=== PATIENT | male | born 1980 | race American Indian/Alaskan Native ===

== ENCOUNTER 2017-08-16 03:46 | Emergency (ER) | payer SELFPAY ==
[2017-08-16 04:04] VITALS: TEMP 97.6
--- NOTE | 2017-08-16 04:33 | ED PDOC ---
HPI: CCC, URI, Sore Throat Time Seen by Provider: 08/16/17 04:10 Chief Complaint (Nursing): ENT Problem Chief Complaint (Provider): cold-symptoms History Per: Patient History/Exam Limitations: no limitations Onset/Duration Of Symptoms: Days (1) Current Symptoms Are (Timing): Still Present Associated Symptoms: Sore Throat, Nasal Congestion Additional Complaint(s): 37 y/o male presents with cold-symptoms x 1 day. Patient reports headache, runny nose alternating with congestion, sore throat. Took dayquil without improvement. Patient also reports hiccups that he can not seem to get rid of. Denies fever, dizziness, nausea/vomiting, cough, chest pain, shortness of breath , palpitations. Past Medical History Reviewed: Historical Data, Nursing Documentation, Vital Signs Vital Signs: Last Vital Signs Temp 97.6 F 08/16/17 04:02 Pulse 76 08/16/17 04:02 Resp 16 08/16/17 04:02 BP 128/80 08/16/17 04:02 Pulse Ox 98 08/16/17 04:34 - Medical History PMH: Asthma - Surgical History Surgical History: No Surg Hx - Family History Family History: States: No Known Family Hx - Home Medications Home Medications: Ambulatory Orders Medication Instructions Recorded Metoclopramide HCl [Reglan] 10 mg PO Q8 PRN #30 tablet 12/27/15 Naproxen [Naprosyn] 500 mg PO BID PRN #30 tab 12/27/15 Fluticasone Nasal [Flonase] 1 actuation NS BID #1 bottle 08/16/17 Ibuprofen [Motrin Tab] 1 tab PO Q6 PRN #20 tab 08/16/17 - Allergies Allergies/Adverse Reactions: Allergies Allergy/AdvReac Type Severity Reaction Status Date / Time FISH AdvReac RASH Verified 08/16/17 04:02 Review of Systems ROS Statement: Except As Marked, All Systems Reviewed And Found Negative ENT: Positive for: Nose Discharge, Nose Congestion, Throat Pain Physical Exam - Reviewed Nursing Documentation Reviewed: Yes Vital Signs Reviewed: Yes - Physical Exam Appears: Positive for: Well, Non-toxic, Uncomfortable (actively hiccuping) Head Exam: Positive for: ATRAUMATIC, NORMAL INSPECTION, NORMOCEPHALIC Skin: Positive for: Normal Color Eye Exam: Positive for: Normal appearance ENT: Positive for: Normal ENT Inspection Cardiovascular/Chest: Positive for: Regular Rate, Rhythm Respiratory: Positive for: Normal Breath Sounds Gastrointestinal/Abdominal: Positive for: Normal Exam Back: Positive for: Normal Inspection Extremity: Positive for: Normal ROM Neurologic/Psych: Positive for: Alert, Oriented - ECG O2 Sat by Pulse Oximetry: 98 - Progress ED Course And Treament: rapid strep Thorazine IM On re-eval, patient resting comfortably; states hiccups resolved. Patient educated on findings, discharged with rx Flonase, Ibuprofen. Advised fluids, rest. Follow up PMD 2-3 days. Return precautions given Disposition - Clinical Impression Clinical Impression: Upper respiratory infection, Hiccups - Patient ED Disposition Is Patient to be Admitted: No Counseled Patient/Family Regarding: Studies Performed, Diagnosis, Need For Followup, Rx Given - Disposition Referrals: [facility] [Outside] Disposition: Routine/Home Disposition Time: 05:37 Condition: IMPROVED Prescriptions: Fluticasone Nasal [Flonase] 1 actuation NS BID #1 bottle Ibuprofen [Motrin Tab] 1 tab PO Q6 PRN #20 tab PRN Reason: Pain, Moderate (4-7) Instructions: Viral Upper Respiratory Infection, Adult (DC), Hiccups Forms: [employer] [facility] ([place])
[2017-08-16 05:49] VITALS: BP 123/66; PULSE 83; RESP 17; O2SAT 100
== END 2017-08-16 05:46 | disposition home or self-care (01) ==
LOC: H.ER 03:46
DX: J06.9 Acute upper respiratory infection, unspecified (principal); R06.6 Hiccough
CPT/HCPCS: 87070; 87430; 96372; 99283; J3230